=== PATIENT | female | born 1950 ===

== ENCOUNTER 2024-04-18 09:30 | Inpatient (IN) | payer OTHER ==
[~2024-04-18] VITALS: Ht 162.6 cm; Wt 80.3 kg
[2024-04-18] MEDS ORDERED: LANTUS SOL100 UNIT/1 (10:41)
[2024-04-18] MEDS ORDERED: PROTONIX20 MG (10:42)
[2024-04-18] MEDS ORDERED: GLIPIZIDE XL2.5 MG (10:42)
[2024-04-18] MEDS ORDERED: LIPITOR40 M1 (10:42)
[2024-04-27] MEDS ORDERED: OxyCODONE HCL 5 MG TABLET (ROXICODONE) PO PRN (13:30)
[2024-04-27] MEDS ORDERED: ONDANSETRON HCL 2 MG/ML VIAL IV PRN (13:30)
[2024-04-27] MEDS ORDERED: RINGERS SOLUTION,LACTATED 1,000 ML IV SCH (13:30)
[2024-04-27] MEDS ORDERED: METRONIDAZOLE/SODIUM CHLORIDE 500 MG/100 ML PIGGYBACK IV ONE (13:30)
[2024-04-27] MEDS ORDERED: LIDOCAINE HCL 1%/EPINEPHRINE 20ML VIAL IJ ONE (13:30)
[2024-04-27] MEDS ORDERED: CEFTRIAXONE SODIUM 2,000 MG VIAL IV ONE (13:30)
[2024-04-27] MEDS ORDERED: BUPIVACAINE HCL 30 ML VIAL IJ ONE (13:30)
[2024-04-27] MEDS ORDERED: SUGAMMADEX SODIUM 200 MG/2 ML VIAL IV ONE (13:30)
[2024-04-27] MEDS ORDERED: MORPHINE SULFATE 4 MG/ML CARTRIDGE IV PRN (13:30)
[2024-04-27] MEDS ORDERED: DEXTROSE 50 % IN WATER 0.5 G/ML DISP.SYRIN IV PRN (16:15)
[2024-04-27] MEDS ORDERED: INSULIN LISPRO 1,000 UNIT/10 ML UNITS SUBCUTANEO PRN (16:15)
[2024-04-27 17:00] VITALS: BP 113/57; O2SAT 95
[2024-04-27] MEDS ORDERED: GABAPENTIN 300 MG CAPSULE PO SCH (17:00)
[2024-04-27] MEDS ORDERED: METRONIDAZOLE/SODIUM CHLORIDE 500 MG/100 ML PIGGYBACK IV SCH (17:00)
[2024-04-27] MEDS ORDERED: HYOSCYAMINE SULFATE 0.125 MG TAB.SUBL SL SCH (17:00)
[2024-04-27] MEDS ORDERED: TAMSULOSIN HCL 0.4 MG CAP PO SCH (17:00)
[2024-04-27] MEDS ORDERED: ACETAMINOPHEN 500 MG GEL..CAP PO SCH (18:00)
[2024-04-27] MEDS ORDERED: CIPROFLOXACIN IN 5 % DEXTROSE 400 MG/200 ML PIGGYBAG IV SCH (21:00)
[2024-04-27] MEDS ORDERED: FAMOTIDINE/PF 20 MG/2 ML VIAL IV PUSH SCH (21:00)
[2024-04-28 01:19] VITALS: BP 121/58; O2SAT 97
[2024-04-28 08:00] VITALS: BP 93/53; O2SAT 94
[2024-04-28] MEDS ORDERED: LACTOBACILLUS ACIDOPHILUS 1 CAP CAP PO SCH (09:00)
[2024-04-28 09:17] LABS: HEMATOCRIT 41.8 % (36.0-45.00); HEMOGLOBIN 14.2 g/dL (12.0-15.00); MEAN CELL VOLUME 82.9 fL (80.00-100.00); MEAN CORPUSCULAR HEMOGLOBIN 28.1 pg (27.00-32.0); MEAN CORPUSCULAR HGB CONC 33.9 g/dl (32.0-36.0); PLATELET COUNT 197 K/uL (150-450); RED BLOOD COUNT 5.05 M/uL (4.00-6.00); RED CELL DISTRIBUTION WIDTH 13.3 % (11.5-14.5)
[2024-04-28 09:55] LABS: ALBUMIN 3.4 gm/dL (3.4-5.0); CALCIUM 8.4 mg/dL (8.5-10.1); CREATININE SERUM 0.71 mg/dL (0.55-1.02); GFR 80.69; MAGNESIUM 1.7 mg/dL (1.8-2.4); PHOSPHOROUS 2.8 mg/dL (2.5-4.9); POTASSIUM 4.11 mEq/L (3.5-5.1)
[2024-04-28] MEDS ORDERED: MAGNESIUM SULFATE IN WATER 50 ML IV NR (11:00)
[2024-04-28] MEDS ORDERED: ENOXAPARIN SODIUM 40 MG/0.4 ML SYRINGE SUBCUTANEO SCH (17:00)
[2024-04-28] MEDS ORDERED: BENZONATATE 100 MG CAPSULE PO SCH (17:00)
[2024-04-28 19:03] VITALS: BP 123/65; O2SAT 95
[2024-04-29 00:55] VITALS: BP 110/62; O2SAT 95
[2024-04-29] MEDS ORDERED: INSULIN NPH HUMAN ISOPHANE 1,000 UNITS/10 ML UNITS SUBCUTANEO SCH ×2 (07:39→16:00)
[2024-04-29 08:00] VITALS: BP 118/63; O2SAT 98
[2024-04-29] MEDS ORDERED: ENOXAPARIN SODIUM 40 MG/0.4 ML SYRINGE SUBCUTANEO SCH (09:00)
[2024-04-29 09:22] LABS: HEMATOCRIT 38.1 % (36.0-45.00); HEMOGLOBIN 12.9 g/dL (12.0-15.00); MEAN CELL VOLUME 81.7 fL (80.00-100.00); MEAN CORPUSCULAR HEMOGLOBIN 27.7 pg (27.00-32.0); MEAN CORPUSCULAR HGB CONC 33.9 g/dl (32.0-36.0); PLATELET COUNT 176 K/uL (150-450); RED BLOOD COUNT 4.66 M/uL (4.00-6.00); RED CELL DISTRIBUTION WIDTH 13.6 % (11.5-14.5)
[2024-04-29 09:54] LABS: CALCIUM 8.2 mg/dL (8.5-10.1); CREATININE SERUM 0.61 mg/dL (0.55-1.02); GFR 96.14; MAGNESIUM 1.9 mg/dL (1.8-2.4); POTASSIUM 3.67 mEq/L (3.5-5.1)
[2024-04-29 10:10] LABS: PHOSPHOROUS 1.5 mg/dL (2.5-4.9)
[2024-04-29] MEDS ORDERED: POTASSIUM PHOS,M-BASIC-D-BASIC 3 MM/ML VIAL IV ONE (12:00)
[2024-04-29 16:00] VITALS: BP 143/77; O2SAT 98
[2024-04-30 00:53] VITALS: BP 120/66; O2SAT 98
[2024-04-30 08:37] VITALS: BP 116/57; O2SAT 97
[2024-04-30] MEDS ORDERED: INTESTINEX680 M1 PO (12:35)
[2024-04-30] MEDS ORDERED: HYOSCYAMINE0.125 M1 SL (12:35)
[2024-04-30] MEDS ORDERED: TRAMADOL HCL50 MG PO (12:36)
== END 2024-04-30 14:24 | disposition home or self-care (01) | DRG 331 ==
LOC: O/R 04-27 05:48 → SURH 04-27 05:48
PROVIDERS: Internal Medicine Geriatric Medicine; ADMIT Surgery; ATTEND Surgery
PROC: 07BB4ZZ Excision of Mesenteric Lymphatic, Percutaneous Endoscopic Approach (ICD-10-PCS; 2024-04-27)
PROC: 0DTF4ZZ Resection of Right Large Intestine, Percutaneous Endoscopic Approach (ICD-10-PCS; principal; 2024-04-27 13:45)
DX: D12.2 Benign neoplasm of ascending colon (principal); K63.5 Polyp of colon; R59.0 Localized enlarged lymph nodes; K57.30 Diverticulosis of large intestine without perforation or abscess without bleeding